=== PATIENT | male | born 1965 | race Hispanic/Latino ===

== ENCOUNTER 2025-07-15 09:36 | Emergency (ER) | payer BC ==
[~2025-07-15] VITALS: Ht 162.6 cm; Wt 77.1 kg
[2025-07-15 10:26] LABS: INFLUENZA TYPE A Negative For Type A (NEGATIVE); INFLUENZA TYPE B Negative For Type B (NEGATIVE)
--- NOTE | 2025-07-15 10:36 | ERN ---
General Chief Complaint: Congestion Stated Complaint: NASAL SWELLING, LEFT Time Seen by MD: 09:41 Source: patient History of Present Illness Initial Comments Patient is a 60-year-old gentleman coming in complaining of nasal congestion. Per patient this has been ongoing for a couple of days he is here because he states that last night he could not breathe through his nose in so much discomfort. No fever or chills. Allergies: Coded Allergies: No Known Drug Allergies (Unverified Allergy, Unknown, 07/15/25) Past Medical History Past Medical History: No Pertinent History Past Surgical History: None ROS Dictation CONSTITUTIONAL: No chills, no fever, no weakness, no diaphoresis, no malaise. HEAD/FACE: No signs of trauma. EENT: No eye pain, no blurred vision, no tearing, no double vision, no ear pain, no ear discharge, no nose pain, nasal congestion, no throat pain, no throat swelling, no mouth pain. RESPIRATORY: No cough, no orthopnea, no SOB, no stridor, no wheezing. CARDIOVASCULAR: No chest pain, no edema, no palpitations, no syncope. GASTROINTESTINAL/ABDOMINAL: No abdominal pain, no constipation, no diarrhea, no nausea, no vomiting. GENITOURINARY: No abnormal discharge, no dysuria, no frequent urination, no hematuria. No complaints of pain in the genitals. MUSCULOSKELETAL: No back pain, no gout, no joint pain, no joint swelling, no muscle pain, no muscle stiffness, no neck pain. INTEGUMENTARY: No change in color, no change in hair/nails, no dryness, no lesion, no lumps, no rash. NEUROLOGICAL/PSYCH: No anxiety, not depressed, no emotional problem, no headache, no numbness, no pre-existing deficit, no history of seizures, no tremors, no weakness. HEMATOLOGIC/LYMPHATIC: Not anemic, no history of blood clots, no apparent bleeding, no bruising, glands not swollen. All Systems Negative, Except as Noted. Physical Exam Physical Exam Dictation VITAL SIGNS: Reviewed. GENERAL APPEARANCE: Alert, oriented x3, no acute distress, obese. HEAD AND FACE: Non-traumatic. EYES: PERRL, pink conjunctivas, eyelid no trauma, anterior chamber clear. EARS: Pinnas intact and no signs of trauma or erythema. Ear canals clear and no discharge. TMs no erythema. NOSE: No discharge, no bleeding. Left nasal turbinate swelling OROPHARYNX: Mouth normal, teeth no caries, tongue pink. Pharynx clear, no erythema. Tonsils no exudates, no abscesses noted. Mucous membrane moist. NECK: Supple, non-tender, no thyromegaly, no masses, no JVD, no bruits. BREAST: Deferred. CHEST: No tenderness, no crepitus, no paradoxical movement, no retractions. LUNGS: Clear, well-ventilated, symmetric, no rales, no wheezing, no rhonchi, no stridor, good breath sounds bilaterally. HEART: Regular rate, regular rhythm, no murmur, no gallops. VASCULAR: No peripheral edema. ABDOMEN: Soft, positive bowel sounds, nondistended, no guarding, nontender, no rebound, no masses no hepatomegaly, no splenomegaly, no Zepeda's sign, no hernias. RECTAL: Deferred. GENITAL: Deferred. NEUROLOGICAL: Normal speech, gross motor function intact, gross sensory function intact. MUSCULOSKELETAL: Neck nontender, full range of motion, back nontender, full range of motion. EXTREMITIES: Nontender, full range of motion. SKIN: Color pink, dry, no turgor, no rash, no lacerations, no abrasions, no contusions. LYMPHATICS: Deferred. Results Laboratory and Microbiology Lab and Micro Result Laboratory Tests Test 07/15/25 10:03 Influenza Type A Antigen Negative For Type A Influenza Type B Antigen Negative For Type B SARS-CoV-2, RNA, NAAT NEGATIVE SARS CoV-2 Labs Reviewed?: Yes MDM MDM: Differential diagnosis: nasal congestion, COVID, strep, flu Rationale: Tests considered and ordered secondary to shared decision making include: Previous outside records reviewed: Risk of complication and/or morbidity or mortality of patient management: None Medications-Per medication reconciliation Need for hospitalization: Patient does not meet criteria for hospitalization. Need for emergency major/minor surgery: No Patient is a 60-year-old gentleman coming in complaining of left nasal co ngestion. On physical exam nasal turbinate swelling in the left nostril. Steroids were given mildly improving symptoms. Patient will be discharged in stable condition with a diagnosis of nasal turbinate swelling. It did not make and appointment for ENT visit with on tuesdayjul 17 at 8:15. ED Course Orders Procedure Category Date Status Time Covid Rna Naat LAB 07/15/25 Complete 09:44 Influenza Type A & B, LAB 07/15/25 Complete Rapid 09:44 Dexamethasone 4mg/Ml PHA 07/15/25 Complete 1ml Vial (Dexametha 10:00 Oxymetazoline Hcl PHA 07/15/25 Complete [place] (Afrin) 10:00 Tramadol Hcl (Ultram) PHA 07/15/25 Complete 11:30 Current Medications Medications (Trade) Dose Ordered Sig/Des Route PRN Reason Start Time Stop Time Status Last Admin Dose Admin Dexamethasone Sodium Phosphate (dexaMETHasone 4MG/ML 1ML VIAL) 4 mg ONCE ONCE IM 07/15/25 10:00 07/15/25 10:01 DC 07/15/25 10:23 Oxymetazoline HCl (AFrin) 2 SPRAYS ONCE ONCE EN 07/15/25 10:00 07/15/25 10:01 DC 07/15/25 10:39 Tramadol HCl (UltRAM) 50 mg ONCE ONCE PO 07/15/25 11:30 07/15/25 11:31 DC 07/15/25 11:20 Vital Signs Date Time Temp Pulse Resp B/P (MAP) Pulse Ox O2 Delivery O2 Flow Rate FiO2 07/15/25 12:08 97.9 100 18 151/95 98 Room Air* 0 21 07/15/25 09:38 97.9 105 16 167/109 98 Room Air 0 DX & DISP Disposition: Discharge Departure Impression: Primary Impression: Nasal congestion Condition: Stable Scripts Loratadine (Loratadine) 10 Mg Tablet 1 TAB PO DAILY for allergy symptoms for 30 Days, #30 TAB 0 Refills Prov: JESÚS HILL MD 07/15/25 Fluticasone Propionate (Flonase Nasal [place]) 50 Mcg/Actuation [place] 2 SPRAY NS DAILY, #16 GM 0 Refills Prov: JESÚS HILL MD 07/15/25 Additional Instructions: FOLLOW-UP WITH PRIMARY CARE PROVIDER IN 1 TO 2 DAYS. TAKE MEDICATIONS DIRECTED HERE IN THE EMERGENCY ROOM. OKAY TO CONTINUE HOME MEDICATIONS UNLESS OTHERWISE DISCUSSED DURING YOUR VISIT IN THE EMERGENCY ROOM TODAY. RETURN TO YOUR NEAREST EMERGENCY ROOM IF SYMPTOMS WORSEN OR IF THERE IS NO IMPROVEMENT. CALL 911 IF YOU NEED IMMEDIATE ASSISTANCE. TAKE TYLENOL [id number] NEEDED AND IF NO CONTRAINDICATIONS ARE PRESENT. INCREASE ORAL HYDRATION. A WOUND CULTURE OR URINE CULTURE WAS ORDERED HERE IN THE EMERGENCY ROOM DEPARTMENT PLEASE FOLLOW-UP WITH PRIMARY CARE PROVIDER AND ADVISE THEM TO GET REPORTS FROM OUR FACILITY. IF YOU HAD ANY [employer] WRAP/SPLINTS THAT WERE APPLIED HERE, PLEASE DO NOT REMOVE THEM UNTIL YOU SEE YOUR PRIMARY CARE OR SPECIALTY. Referrals: Referrals: SELF,REFERRAL (PCP) ELIZABETH CANTU MD, CHARLES P MD Time of Disposition: 10:35 JESÚS HILL MD Jul 15, 2025 10:36
[2025-07-15] MEDS: OXYmetazoline HCL SPRAY 100 SPRAYS/15 ML BOTTLE EN ONE (10:39)
[2025-07-15 10:40] LABS: SARS-CoV-2, RNA, NAAT NEGATIVE SARS CoV-2 (NEGATIVE)
[2025-07-15 12:08] VITALS: BP 151/95; PULSE 100; RESP 18; TEMP 97.9; O2SAT 98
[2025-07-15] MEDS ORDERED: FLUT16H NS (12:17)
[2025-07-15] MEDS ORDERED: LORA10TA7 PO (12:17)
== END 2025-07-15 12:30 | disposition home or self-care (01) ==
LOC: EDH 09:36
DX: R09.81 Nasal congestion (principal); Z20.822 Contact with and (suspected) exposure to COVID-19
CPT/HCPCS: 99284; 87635; 87804 ×2; 96372; J1100